=== PATIENT | male | born 1975 | race Caucasian/White ===

== ENCOUNTER 2017-08-25 13:20 | Emergency (ER) | payer SELFPAY ==
[~2017-08-25] VITALS: Ht 167.6 cm; Wt 64.0 kg
[2017-08-25] MEDS ORDERED: PANTOPRAZOLE 80 MG in SODIUM CHLORIDE 0.9% 50 ML IVPB ONE (13:32)
[2017-08-25] MEDS ORDERED: PANTOPRAZOLE 80 MG in SODIUM CHLORIDE 0.9% 100 ML IV SCH (13:32)
[2017-08-25 13:54] LABS: BASOPHILS % (AUTO) 0 % (0-1); EOSINOPHILS % (AUTO) 0 % (1-7); LYMPHOCYTES % (AUTO) 5 % (22-44); MD NO; MEAN CORPUSCULAR HEMOGLOBIN 29.6 pg (27.5-34.5); MEAN CORPUSCULAR HGB CONC 33.5 g/dL (33.2-36.2); MEAN CORPUSCULAR VOLUME 88.3 fL (81-97); MEAN PLATELET VOLUME 7.3 fL (7.4-10.4); MONOCYTES # (AUTO) 0.47 x10^3/uL (0.2-0.8); MONOCYTES % (AUTO) 11 % (2-9); NEUTROPHILS # (AUTO) 3.75 x10^3/uL (1.8-6.8); NEUTROPHILS % (AUTO) 85 % (42-75); PLATELET COUNT 125 x10^3/uL (130-400)
[2017-08-25] MEDS ORDERED: MORPHINE SULFATE 4 MG/ML, 1ML ONE ×2 (14:00→15:30)
[2017-08-25] MEDS ORDERED: SODIUM CHLORIDE 0.9% 1,000ML IVBOLUS ONE ×2 (14:00→16:00)
[2017-08-25] MEDS ORDERED: SODIUM CHLORIDE FLUSH 10ML SYR IVF ONE ×2 (14:00)
[2017-08-25] MEDS ORDERED: ONDANSETRON 2MG/ML, 2ML IVPush ONE (14:00)
[2017-08-25] MEDS ORDERED: ONDANSETRON 2MG/ML, 2ML ONE (14:00)
[2017-08-25 14:04] LABS: CHLORIDE 102 mmol/L (98-107)
[2017-08-25 14:05] LABS: ALANINE AMINOTRANSFERASE 63 U/L (12-78); ALBUMIN 3.3 g/dL (3.4-5.0); ANION GAP 18 mmol/L (5-15); CALCIUM 8.3 mg/dL (8.5-10.1); CREATININE 0.86 mg/dL (0.7-1.3)
[2017-08-25] MEDS: MORPHINE SULFATE 4 MG/ML, 1ML IVPush PRN ×2 (14:05→15:33)
[2017-08-25 14:07] LABS: ALKALINE PHOSPHATASE 92 U/L (45-117); BILIRUBIN,TOTAL 1.2 mg/dL (0.2-1.0); TOTAL PROTEIN 7.3 g/dL (6.4-8.2)
[2017-08-25] MEDS ORDERED: THIAMINE 100MG TABLET PO ONE (14:30)
[2017-08-25 14:45] LABS: INTERNATIONAL NORMALIZED RATIO 0.94 (0.93-1.1); PROTHROMBIN TIME 9.8 Seconds (9.6-11.5)
[2017-08-25] MEDS ORDERED: THIAMINE 100MG TABLET ONE (15:41)
[2017-08-25] MEDS ORDERED: LORazepam 1MG TABLET ONE (16:12)
[2017-08-25] MEDS ORDERED: LORazepam 1MG TABLET PO ONE (16:30)
[2017-08-25] MEDS ORDERED: MAALOX/HYOSCYAMINE/LIDOCAINE 45 ML BTL PO ONE (17:00)
[2017-08-25] MEDS ORDERED: MAALOX/HYOSCYAMINE/LIDOCAINE 45 ML BTL ONE (17:10)
[2017-08-25 18:02] VITALS: BP 123/80
== END 2017-08-25 18:10 | disposition home or self-care (01) ==
LOC: ED 16:14
DX: K29.21 Alcoholic gastritis with bleeding (principal)
CPT/HCPCS: 36415; 71045; 80053; 83690; 85025; 85610; 85730; 93005; 96361; 96365; 96368; 96374; 96375; 96376; 99285; C9113; J2405; J7030

== ENCOUNTER 2018-12-26 18:16 | Observation (INO) | payer MEDICAID ==
[~2018-12-26] VITALS: Ht 165.1 cm; Wt 55.9 kg
--- NOTE | 2018-12-26 18:29 | NUR ---
PT ARRIVES TO ED WITH ABD PAIN. PT RECENTLY IN THE HOSPITAL FOR ABD PAIN. UNABLE TO PROVIDE FURTHER DETAILS. PT DENIES TRUAMA OR ABD BLEEDING OR BLOODY STOOL. PT HAS NO BRUISING ON ABD. PT HAS GOOD CAP REFILL. PT REPORTS CHRONIC ETOH USE PRIOR TO HOSPITAL ADMISSION.
--- NOTE | 2018-12-26 18:31 | NUR ---
CALL LIGHT IN REACH AWAITING FURTHER ORDERS.
--- NOTE | 2018-12-26 18:38 | NUR ---
PT LAYING ON ADAMRCLEMENTE AWAKE C/O ABD PAIN, RESPONDS APPROP TO STAFF, COMFORT MEASURES PROVIDED NEEDED, ERP AT BS, CALL LIGHT WITHIN REACH. Addendum: 12/26/18 at 1850 by LACEY BREAK RN: PT LAYING ON AADMRNEY AWAKE C/O ABD PAIN, RESPONDS APPROP TO STAFF, COMFORT MEASURES PROVIDED NEEDED, ERP AT BS, CALL LIGHT WITHIN REACH.
[2018-12-26] MEDS ORDERED: MAALOX/HYOSCYAMINE/LIDOCAINE 45 ML BTL ONE (18:57)
[2018-12-26] MEDS ORDERED: MORPHINE SULFATE 4 MG/ML, 1ML ONE ×2 (18:57→22:21)
[2018-12-26] MEDS ORDERED: PROMETHAZINE 25 MG/ML, 1ML ONE (18:57)
[2018-12-26] MEDS ORDERED: ONDANSETRON 2MG/ML, 2ML ONE (18:57)
[2018-12-26] MEDS ORDERED: FAMOTIDINE 20 MG/2 ML ONE (18:58)
[2018-12-26] MEDS ORDERED: ONDANSETRON 2MG/ML, 2ML IVPush ONE (19:00)
[2018-12-26] MEDS ORDERED: MAALOX/HYOSCYAMINE/LIDOCAINE 45 ML BTL PO ONE (19:00)
[2018-12-26] MEDS ORDERED: SODIUM CHLORIDE 0.9% 1,000ML IVBOLUS ONE (19:00)
[2018-12-26] MEDS ORDERED: FAMOTIDINE 20 MG/2 ML IV ONE (19:00)
[2018-12-26] MEDS ORDERED: PROMETHAZINE 25 MG/ML, 1ML IM ONE (19:00)
[2018-12-26] MEDS: MORPHINE SULFATE 4 MG/ML, 1ML IVPush PRN ×2 (19:08→22:24)
[2018-12-26 19:14] LABS: BASOPHILS % (AUTO) 0 % (0-1); EOSINOPHILS # (AUTO) 0.03 x10^3/uL (0-0.4); EOSINOPHILS % (AUTO) 0 % (1-7); LYMPHOCYTES # (AUTO) 0.77 x10^3/uL (1-3.4); LYMPHOCYTES % (AUTO) 6 % (22-44); MD NO; MEAN CORPUSCULAR HGB CONC 32.9 g/dL (33.2-36.2); MEAN CORPUSCULAR VOLUME 97.1 fL (81-97); MEAN PLATELET VOLUME 8.4 fL (7.4-10.4); MONOCYTES # (AUTO) 0.76 x10^3/uL (0.2-0.8); MONOCYTES % (AUTO) 6 % (2-9); NEUTROPHILS % (AUTO) 87 % (42-75); PLATELET COUNT 177 x10^3/uL (130-400); RED BLOOD COUNT 4.06 x10^6/uL (4.38-5.82); RED CELL DISTRIBUTION WIDTH 16.2 % (9.4-14.8)
--- NOTE | 2018-12-26 19:15 | NUR ---
PT MEDICATED PER EMAR.
[2018-12-26 19:23] LABS: ALANINE AMINOTRANSFERASE 65 U/L (12-78); ALBUMIN 3.7 g/dL (3.4-5.0); ANION GAP 10 mmol/L (5-15); CALCIUM 8.6 mg/dL (8.5-10.1); CHLORIDE 100 mmol/L (98-107); CREATININE 0.84 mg/dL (0.7-1.3)
[2018-12-26 19:25] LABS: ALKALINE PHOSPHATASE 103 U/L (45-117); BILIRUBIN,TOTAL 0.5 mg/dL (0.2-1.0); TOTAL PROTEIN 7.8 g/dL (6.4-8.2)
[2018-12-26] MEDS ORDERED: HALOPERIDOL 5 MG/ML IM ONE (20:00)
[2018-12-26] MEDS ORDERED: DICYCLOMINE 10 MG/ML, 2ML IM ONE (20:00)
[2018-12-26] MEDS ORDERED: HALOPERIDOL 5 MG/ML ONE (20:25)
[2018-12-26] MEDS ORDERED: HALOPERIDOL 5 MG/ML IV ONE (21:00)
[2018-12-26] MEDS: NS + 20MEQ KCL 1,000 ML IV SCH (21:38)
[2018-12-26] MEDS ORDERED: ONDANSETRON 2MG/ML, 2ML IVPush PRN (22:00)
[2018-12-26] MEDS: FAMOTIDINE 20 MG TABLET PO SCH (22:00)
[2018-12-26] MEDS ORDERED: NS + 20MEQ KCL 1,000 ML IV ONE (22:05)
--- NOTE | 2018-12-26 22:13 | NUR ---
PT REMAINS IN PAIN, HOWEVER HAS IMPROVED. INFORMED THAT DUE TO ETOH ON BOARD ER MD DOES NOT WANT MORE NARCOTICS CLIFF BOARD FOR SAFETY.
--- NOTE | 2018-12-26 22:19 | NUR ---
PAGED PLACED TO HOSPITALIST.
[2018-12-26] MEDS: SUCRALFATE 1 GM/10 ML UDC PO SCH (22:24)
--- NOTE | 2018-12-26 22:24 | NUR ---
PT GIVEN SECOND DOSE OF MORPHINE PAIN MEDS AFTER SPEAKING WITH ARVIND LOPEZ. PT TO RECIEVE NO FURTHER NARCOTIC UNTIL ETOH GOES DOWN.
--- NOTE | 2018-12-26 22:29 | NUR ---
REPORT TO MAX THOMPSON
--- NOTE | 2018-12-26 22:37 | NUR ---
Marnie phillips in [facility] - 12/26/18 at 2238 by LYNNE REPORT TO MAX THOMPSON
--- NOTE | 2018-12-26 22:38 | NUR ---
REPORT TO MAX THOMPSON
[2018-12-26 22:56] VITALS: BP 145/88
[2018-12-27 02:00] VITALS: BP 119/83
[2018-12-27 06:46] LABS: BASOPHILS # (AUTO) 0.08 x10^3/uL (0-0.1); BASOPHILS % (AUTO) 1 % (0-1); EOSINOPHILS % (AUTO) 6 % (1-7); LYMPHOCYTES # (AUTO) 1.32 x10^3/uL (1-3.4); LYMPHOCYTES % (AUTO) 17 % (22-44); MD NO; MEAN CORPUSCULAR HGB CONC 32.8 g/dL (33.2-36.2); MEAN CORPUSCULAR VOLUME 97.6 fL (81-97); MEAN PLATELET VOLUME 7.9 fL (7.4-10.4); MONOCYTES % (AUTO) 11 % (2-9); NEUTROPHILS # (AUTO) 5.14 x10^3/uL (1.8-6.8); NEUTROPHILS % (AUTO) 65 % (42-75); PLATELET COUNT 146 x10^3/uL (130-400); RED BLOOD COUNT 3.56 x10^6/uL (4.38-5.82); RED CELL DISTRIBUTION WIDTH 16.1 % (9.4-14.8)
[2018-12-27 06:56] LABS: ALBUMIN 2.8 g/dL (3.4-5.0); ANION GAP 7 mmol/L (5-15); CALCIUM 7.7 mg/dL (8.5-10.1); CHLORIDE 109 mmol/L (98-107)
[2018-12-27 07:00] LABS: ALANINE AMINOTRANSFERASE 45 U/L (12-78); ALKALINE PHOSPHATASE 77 U/L (45-117); CREATININE 0.57 mg/dL (0.7-1.3); TOTAL PROTEIN 5.9 g/dL (6.4-8.2)
[2018-12-27] MEDS: SUCRALFATE 1 GM/10 ML UDC PO SCH ×4 (07:18→19:51)
[2018-12-27 07:33] VITALS: BP 121/82
[2018-12-27] MEDS: FAMOTIDINE 20 MG TABLET PO SCH ×2 (08:47→19:51)
[2018-12-27] MEDS: NS + 20MEQ KCL 1,000 ML IV SCH ×2 (08:48→17:38)
[2018-12-27] MEDS ORDERED: OMNIPAQUE 350 MG/ML, 100ML BOTTLE ONE (11:52)
[2018-12-27 13:10] VITALS: BP 117/76
[2018-12-27 16:27] LABS: MICROSCOPIC NOT IND
[2018-12-27 19:40] VITALS: BP 115/82
[2018-12-27] MEDS: ACETAMINOPHEN 325 MG TABLET PO PRN (19:51)
[2018-12-28 02:31] VITALS: BP 99/69
[2018-12-28] MEDS: NS + 20MEQ KCL 1,000 ML IV SCH ×2 (03:00→14:37)
[2018-12-28] MEDS: SUCRALFATE 1 GM/10 ML UDC PO SCH ×4 (06:26→20:55)
[2018-12-28 06:42] LABS: ANION GAP 5 mmol/L (5-15); CALCIUM 8.6 mg/dL (8.5-10.1); CHLORIDE 109 mmol/L (98-107)
[2018-12-28 06:46] LABS: ALANINE AMINOTRANSFERASE 52 U/L (12-78); ALKALINE PHOSPHATASE 80 U/L (45-117); BILIRUBIN,TOTAL 0.6 mg/dL (0.2-1.0); CREATININE 0.62 mg/dL (0.7-1.3); TOTAL PROTEIN 6.4 g/dL (6.4-8.2)
[2018-12-28 06:58] LABS: BASOPHILS # (AUTO) 0.05 x10^3/uL (0-0.1); BASOPHILS % (AUTO) 1 % (0-1); EOSINOPHILS % (AUTO) 13 % (1-7); LYMPHOCYTES # (AUTO) 1.13 x10^3/uL (1-3.4); LYMPHOCYTES % (AUTO) 24 % (22-44); MD SCAN; MEAN CORPUSCULAR HEMOGLOBIN 31.7 pg (27.5-34.5); MEAN CORPUSCULAR HGB CONC 32.5 g/dL (33.2-36.2); MEAN CORPUSCULAR VOLUME 97.8 fL (81-97); MEAN PLATELET VOLUME 8.2 fL (7.4-10.4); MONOCYTES # (AUTO) 0.73 x10^3/uL (0.2-0.8); MONOCYTES % (AUTO) 16 % (2-9); NEUTROPHILS # (AUTO) 2.19 x10^3/uL (1.8-6.8); NEUTROPHILS % (AUTO) 47 % (42-75); PLATELET COUNT 164 x10^3/uL (130-400); RED BLOOD COUNT 4.02 x10^6/uL (4.38-5.82); RED CELL DISTRIBUTION WIDTH 16.2 % (9.4-14.8)
[2018-12-28 08:19] VITALS: BP 117/83
[2018-12-28] MEDS: FAMOTIDINE 20 MG TABLET PO SCH ×2 (08:22→20:55)
[2018-12-28] MEDS: ACETAMINOPHEN 325 MG TABLET PO PRN ×2 (08:23→18:16)
[2018-12-28 13:50] VITALS: BP 122/84
[2018-12-28 19:17] VITALS: BP 117/82
[2018-12-29] MEDS: NS + 20MEQ KCL 1,000 ML IV SCH ×3 (00:03→21:40)
[2018-12-29 01:51] VITALS: BP 104/73
[2018-12-29 07:55] VITALS: BP 102/67
[2018-12-29] MEDS: FAMOTIDINE 20 MG TABLET PO SCH ×2 (08:57→21:39)
[2018-12-29] MEDS: SUCRALFATE 1 GM/10 ML UDC PO SCH ×4 (08:57→21:39)
[2018-12-29 14:50] VITALS: BP 106/74
[2018-12-29] MEDS: ACETAMINOPHEN 325 MG TABLET PO PRN ×2 (16:21→21:39)
[2018-12-29 19:22] VITALS: BP 103/69
[2018-12-30 01:15] VITALS: BP 110/77
[2018-12-30] MEDS: SUCRALFATE 1 GM/10 ML UDC PO SCH (07:42)
[2018-12-30] MEDS: FAMOTIDINE 20 MG TABLET PO SCH (07:42)
[2018-12-30 07:52] VITALS: BP 100/69
== END 2018-12-30 10:51 | disposition home or self-care (01) ==
LOC: ED 21:25 → INTOOBSV 21:31 → EDIP 21:31 → ED 21:37 → 3N 22:43
PROVIDERS: ADMIT Internal Medicine; ATTEND Internal Medicine
DX: K29.20 Alcoholic gastritis without bleeding (principal); E87.6 Hypokalemia; D75.89 Other specified diseases of blood and blood-forming organs; F17.210 Nicotine dependence, cigarettes, uncomplicated; E86.0 Dehydration; Z79.899 Other long term (current) drug therapy
CPT/HCPCS: 36415; 71045; 74177; 80053; 80307; 81003; 82607; 83690; 85025; 96365; 96366; 96372; 96375; 96376; 99284; G0378; J1630; J2270; J2405; J2550; J3480; J3490; J7030; Q9967

== ENCOUNTER 2019-10-27 13:58 | Inpatient (IN) | payer MEDICAID ==
[~2019-10-27] VITALS: Ht 170.2 cm; Wt 69.0 kg
[2019-10-27] MEDS ORDERED: SODIUM CHLORIDE 0.9% 1,000 ML IV ONE (14:08)
[2019-10-27] MEDS ORDERED: PANTOPRAZOLE 80 MG in SODIUM CHLORIDE 0.9% 50 ML IVPB ONE (14:08)
[2019-10-27] MEDS: PANTOPRAZOLE 80 MG in SODIUM CHLORIDE 0.9% 100 ML IV SCH ×2 (14:08→17:35)
[2019-10-27] MEDS ORDERED: ONDANSETRON 2MG/ML, 2ML ONE (14:11)
[2019-10-27] MEDS ORDERED: HYDROmorphone 1 MG/ML, 1ML INJ ONE ×2 (14:11→15:23)
[2019-10-27] MEDS: HYDROmorphone 1 MG/ML, 1ML INJ IVPush PRN ×2 (14:16→15:30)
--- NOTE | 2019-10-27 14:27 | NUR ---
BREAK RN- PT TO IMAGING
[2019-10-27] MEDS ORDERED: ONDANSETRON 2MG/ML, 2ML IVPush ONE (14:30)
[2019-10-27] MEDS ORDERED: PLEASE ENTER HEIGHT AND WEIGHT MC SCH (14:30)
[2019-10-27] MEDS ORDERED: THIAMINE 100 MG in SODIUM CHLORIDE 0.9% 50 ML IVPB ONE (14:30)
[2019-10-27] MEDS ORDERED: SODIUM CHLORIDE FLUSH 10ML SYR IVF ONE (14:30)
[2019-10-27] MEDS ORDERED: SODIUM CHLORIDE 0.9% 1,000ML IVBOLUS ONE (14:30)
[2019-10-27 14:31] LABS: BASOPHILS # (AUTO) 0.03 x10^3/uL (0-0.1); BASOPHILS % (AUTO) 0 % (0-1); EOSINOPHILS # (AUTO) 0.01 x10^3/uL (0-0.4); EOSINOPHILS % (AUTO) 0 % (1-7); LYMPHOCYTES # (AUTO) 0.47 x10^3/uL (1-3.4); LYMPHOCYTES % (AUTO) 7 % (22-44); MD NO; MEAN CORPUSCULAR HEMOGLOBIN 32.5 pg (27.5-34.5); MEAN CORPUSCULAR HGB CONC 32.9 g/dL (33.2-36.2); MEAN CORPUSCULAR VOLUME 98.7 fL (81-97); MEAN PLATELET VOLUME 7.5 fL (7.4-10.4); MONOCYTES # (AUTO) 0.48 x10^3/uL (0.2-0.8); MONOCYTES % (AUTO) 7 % (2-9); NEUTROPHILS # (AUTO) 5.92 x10^3/uL (1.8-6.8); NEUTROPHILS % (AUTO) 86 % (42-75); PLATELET COUNT 210 x10^3/uL (130-400); RED BLOOD COUNT 4.09 x10^6/uL (4.38-5.82); RED CELL DISTRIBUTION WIDTH 19.2 % (9.4-14.8)
[2019-10-27 14:41] LABS: ALANINE AMINOTRANSFERASE 136 U/L (12-78); ANION GAP 12 mmol/L (5-15); CALCIUM 8.9 mg/dL (8.5-10.1); CHLORIDE 111 mmol/L (98-107); CREATININE 0.61 mg/dL (0.7-1.3)
[2019-10-27 14:44] LABS: ALKALINE PHOSPHATASE 141 U/L (45-117); BILIRUBIN,TOTAL 0.6 mg/dL (0.2-1.0); TOTAL PROTEIN 6.4 g/dL (6.4-8.2)
--- NOTE | 2019-10-27 14:49 | NUR ---
MEDICATIONS REQUESTED FROM PHARMACY
[2019-10-27 15:04] LABS: INTERNATIONAL NORMALIZED RATIO 1.01 (0.93-1.1); PROTHROMBIN TIME 10.4 Seconds (9.6-11.5)
[2019-10-27] MEDS ORDERED: PANTOPRAZOLE 40 MG IV ONE (15:33)
[2019-10-27] MEDS ORDERED: POTASSIUM CHLORIDE 20 MEQ TAB.ER.PRT ONE (15:44)
[2019-10-27] MEDS ORDERED: SODIUM CHLORIDE FLUSH 10ML SYR IVF PRN (16:00)
[2019-10-27] MEDS ORDERED: POTASSIUM CHLORIDE 20 MEQ TAB.ER.PRT PO ONE (16:00)
[2019-10-27] MEDS ORDERED: LORazepam 0.5MG TABLET PO PRN (16:30)
[2019-10-27] MEDS ORDERED: LORazepam 2 MG/ML, 1ML IV PRN ×5 (16:30)
[2019-10-27] MEDS ORDERED: ONDANSETRON ODT 4 MG PO PRN (16:30)
[2019-10-27] MEDS ORDERED: LORazepam 1MG TABLET PO PRN ×4 (16:30)
[2019-10-27] MEDS ORDERED: TRAZODONE 50MG TABLET PO PRN ×2 (16:30→21:00)
[2019-10-27] MEDS ORDERED: METOCLOPRAMIDE 5 MG/ML, 2ML IVPush PRN (16:30)
[2019-10-27 16:51] VITALS: BP 151/93
[2019-10-27] MEDS: NS + 20MEQ KCL 1,000 ML IV SCH (17:50)
[2019-10-27] MEDS: DIVALPROEX 125 MG CAP.SPRINK PO SCH (17:50)
[2019-10-27] MEDS ORDERED: MAGNESIUM SULFATE PMX 4GM/100M 100 ML IV ONE (18:00)
[2019-10-27] MEDS ORDERED: NICOTINE 14MG/24 HR PATCH.TD24 TD ONE (18:00)
[2019-10-27 18:50] VITALS: BP 144/88
[2019-10-27] MEDS: GABAPENTIN 300 MG CAPSULE PO SCH (20:08)
[2019-10-28] MEDS: NS + 20MEQ KCL 1,000 ML IV SCH ×4 (00:07→23:49)
[2019-10-28] MEDS: DIVALPROEX 125 MG CAP.SPRINK PO SCH ×3 (00:30→15:31)
[2019-10-28 01:53] VITALS: BP 137/82
[2019-10-28 06:07] LABS: ALANINE AMINOTRANSFERASE 101 U/L (12-78); ALBUMIN 2.7 g/dL (3.4-5.0); ANION GAP 6 mmol/L (5-15); CALCIUM 7.6 mg/dL (8.5-10.1); CHLORIDE 112 mmol/L (98-107)
[2019-10-28 06:09] LABS: ALKALINE PHOSPHATASE 128 U/L (45-117); BILIRUBIN,TOTAL 0.7 mg/dL (0.2-1.0); TOTAL PROTEIN 5.9 g/dL (6.4-8.2)
[2019-10-28 07:00] VITALS: BP 119/83
[2019-10-28] MEDS: MULTIVITAMIN 1 TABLET PO SCH (08:33)
[2019-10-28] MEDS: THIAMINE 100MG TABLET PO SCH (08:33)
[2019-10-28] MEDS: GABAPENTIN 300 MG CAPSULE PO SCH ×3 (08:33→20:00)
[2019-10-28] MEDS: FOLIC ACID 1 MG TABLET PO SCH (08:33)
[2019-10-28 12:11] VITALS: BP 118/84
[2019-10-28] MEDS: ACETAMINOPHEN 325 MG TABLET PO PRN (12:42)
[2019-10-28] MEDS: METOCLOPRAMIDE 5 MG/ML, 2ML IVPush SCH ×2 (12:56→19:16)
[2019-10-28] MEDS: PANTOPRAZOLE 40 MG IV IVPush SCH (12:56)
[2019-10-28 18:20] VITALS: BP 113/79
[2019-10-29] MEDS: PANTOPRAZOLE 40 MG IV IVPush SCH ×2 (01:13→12:07)
[2019-10-29] MEDS: METOCLOPRAMIDE 5 MG/ML, 2ML IVPush SCH ×3 (01:14→12:07)
[2019-10-29] MEDS: DIVALPROEX 125 MG CAP.SPRINK PO SCH ×3 (01:14→15:23)
[2019-10-29 02:00] VITALS: BP 106/70
[2019-10-29 06:53] VITALS: BP 112/77
[2019-10-29] MEDS: FOLIC ACID 1 MG TABLET PO SCH (07:22)
[2019-10-29] MEDS: NS + 20MEQ KCL 1,000 ML IV SCH ×2 (07:22→14:48)
[2019-10-29] MEDS: GABAPENTIN 300 MG CAPSULE PO SCH ×2 (07:22→15:23)
[2019-10-29] MEDS: THIAMINE 100MG TABLET PO SCH (07:22)
[2019-10-29] MEDS: MULTIVITAMIN 1 TABLET PO SCH (07:22)
[2019-10-29] MEDS: ACETAMINOPHEN 325 MG TABLET PO PRN (13:49)
[2019-10-29] MEDS ORDERED: MULT-449 PO (14:01)
[2019-10-29] MEDS ORDERED: OMEP20TA62 PO (14:01)
[2019-10-29] MEDS ORDERED: DIVA125C2 PO (14:01)
[2019-10-29] MEDS ORDERED: GABA300C PO (14:01)
[2019-10-29 14:34] VITALS: BP 112/76
[2019-10-30] MEDS ORDERED: PANTOPRAZOLE 40MG TABLET PO SCH (06:00)
== END 2019-10-29 18:10 | disposition home or self-care (01) | DRG 392 ==
LOC: ED 15:50 → SUATTDRO 16:04 → EDIP 16:13 → 4WST 16:24
PROVIDERS: ADMIT Internal Medicine; ATTEND Internal Medicine
DX: K29.20 Alcoholic gastritis without bleeding (principal); F10.239 Alcohol dependence with withdrawal, unspecified; E83.42 Hypomagnesemia; E87.6 Hypokalemia; F17.200 Nicotine dependence, unspecified, uncomplicated; K29.00 Acute gastritis without bleeding; K76.0 Fatty (change of) liver, not elsewhere classified
CPT/HCPCS: 36415; 74021; 76705; 80053; 83690; 83735; 84100; 85018; 85025; 85610; 85730; 86850; 86900; G0378; J1170; J2405; J3411; J3480; C9113; J2060; J2765; J3475; J7030

== ENCOUNTER 2020-01-06 12:27 | Inpatient (IN) | payer MEDICAID ==
[~2020-01-06] VITALS: Ht 167.6 cm; Wt 63.4 kg
[~2020-01-06 12:27] MED LIST: DIVA125C2 PO; GABA300C PO; MULT-449 PO; OMEP20TA62 PO
[2020-01-06] MEDS ORDERED: PROMETHAZINE 25 MG/ML, 1ML ONE (13:26)
[2020-01-06] MEDS ORDERED: MAALOX/HYOSCYAMINE/LIDOCAINE 45 ML BTL ONE (13:27)
[2020-01-06] MEDS ORDERED: FAMOTIDINE 20 MG/2 ML ONE (13:27)
[2020-01-06 13:29] LABS: BASOPHILS % (AUTO) 0 % (0-1); EOSINOPHILS % (AUTO) 0 % (1-7); LYMPHOCYTES % (AUTO) 3 % (22-44); MEAN CORPUSCULAR HEMOGLOBIN 32.2 pg (27.5-34.5); MEAN CORPUSCULAR HGB CONC 33.5 g/dL (33.2-36.2); MEAN PLATELET VOLUME 9.8 fL (7.4-10.4); MONOCYTES % (AUTO) 4 % (2-9); NEUTROPHILS % (AUTO) 93 % (42-75); PLATELET COUNT 114 x10^3/uL (130-400); RED BLOOD COUNT 4.31 x10^6/uL (4.38-5.82); RED CELL DISTRIBUTION WIDTH 14.5 % (9.4-14.8)
[2020-01-06] MEDS ORDERED: PROMETHAZINE 25 MG/ML, 1ML IM ONE (13:30)
[2020-01-06] MEDS ORDERED: SODIUM CHLORIDE FLUSH 10ML SYR IVF ONE (13:30)
[2020-01-06] MEDS ORDERED: FAMOTIDINE 20 MG/2 ML IV ONE (13:30)
[2020-01-06] MEDS ORDERED: MAALOX/HYOSCYAMINE/LIDOCAINE 45 ML BTL PO ONE (13:30)
[2020-01-06] MEDS ORDERED: SODIUM CHLORIDE 0.9% 1,000ML IVBOLUS ONE (13:30)
[2020-01-06 13:34] LABS: ALANINE AMINOTRANSFERASE 28 U/L (12-78); ALBUMIN 3.7 g/dL (3.4-5.0); ANION GAP 12 mmol/L (5-15); CALCIUM 9.2 mg/dL (8.5-10.1); CHLORIDE 95 mmol/L (98-107); CREATININE 1.12 mg/dL (0.7-1.3)
[2020-01-06 13:36] LABS: ALKALINE PHOSPHATASE 90 U/L (45-117); BILIRUBIN,TOTAL 0.8 mg/dL (0.2-1.0); TOTAL PROTEIN 7.5 g/dL (6.4-8.2)
[2020-01-06 14:02] LABS: MD NO
[2020-01-06] MEDS ORDERED: OMNIPAQUE 350 MG/ML, 100ML BOTTLE ONE (14:32)
[2020-01-06 14:38] LABS: MICROSCOPIC INDICATED
[2020-01-06 14:58] LABS: TROPONIN I < 0.015 ng/mL (0.000-0.045)
--- NOTE | 2020-01-06 15:26 | NUR ---
REPORT GIVEN TO DONNA LOPEZ
[2020-01-06] MEDS ORDERED: METOCLOPRAMIDE 5 MG/ML, 2ML ONE (17:16)
[2020-01-06] MEDS ORDERED: METOCLOPRAMIDE 5 MG/ML, 2ML IVPush ONE (17:30)
[2020-01-06] MEDS ORDERED: SODIUM CHLORIDE 0.9% 1,000 ML IV ONE (17:30)
[2020-01-06 18:10] LABS: AMPHETAMINE SCREEN, URINE Negative (Negative); BARBITURATE SCREEN, URINE Negative (Negative); BENZODIAZEPINE SCREEN, URINE Negative (Negative); CANNABINOID SCREEN, URINE Negative (Negative); COCAINE SCREEN, URINE Negative (Negative); METHADONE SCREEN, URINE Negative (Negative); OPIATE SCREEN, URINE Negative (Negative)
[2020-01-06] MEDS ORDERED: BISACODYL 10 MG SUPP PR PRN (18:30)
[2020-01-06] MEDS ORDERED: ACETAMINOPHEN 325 MG TABLET PO PRN (18:30)
[2020-01-06] MEDS ORDERED: POLYETHYLENE GLYCOL 17 GM PACKET PO PRN (18:30)
[2020-01-06] MEDS ORDERED: OMEPRAZOLE 20 MG CAPSULE.DR ONE (18:43)
[2020-01-06] MEDS ORDERED: NS + 20MEQ KCL 1,000 ML IV ONE (18:43)
[2020-01-06] MEDS: SUCRALFATE 1 GM/10 ML UDC PO SCH (19:20)
[2020-01-06] MEDS: NS + 20MEQ KCL 1,000 ML IV SCH (19:20)
[2020-01-06 21:13] VITALS: BP 90/63
[2020-01-06] MEDS: NICOTINE 14MG/24 HR PATCH.TD24 TD SCH (23:42)
[2020-01-06] MEDS: OXYcodone IR 5MG TABLET PO PRN (23:42)
[2020-01-07 02:05] VITALS: BP 89/60
[2020-01-07] MEDS: NS + 20MEQ KCL 1,000 ML IV SCH ×3 (02:10→20:22)
[2020-01-07 02:11] VITALS: BP 94/60
[2020-01-07] MEDS: ONDANSETRON 2MG/ML, 2ML IVPush PRN ×2 (02:16→10:07)
[2020-01-07 07:21] VITALS: BP 99/63
[2020-01-07] MEDS ORDERED: OMEPRAZOLE 20 MG CAPSULE.DR PO SCH (07:30)
[2020-01-07] MEDS: SUCRALFATE 1 GM/10 ML UDC PO SCH ×4 (08:44→20:22)
[2020-01-07] MEDS: OXYcodone IR 5MG TABLET PO PRN ×3 (08:45→20:49)
[2020-01-07] MEDS: SENNA/DOCUSATE TABLET PO SCH (08:45)
[2020-01-07 09:57] LABS: BASOPHILS % (AUTO) 1 % (0-1); EOSINOPHILS % (AUTO) 1 % (1-7); LYMPHOCYTES % (AUTO) 22 % (22-44); MEAN CORPUSCULAR HEMOGLOBIN 32.8 pg (27.5-34.5); MEAN CORPUSCULAR HGB CONC 34.2 g/dL (33.2-36.2); MEAN PLATELET VOLUME 9.8 fL (7.4-10.4); MONOCYTES % (AUTO) 7 % (2-9); NEUTROPHILS % (AUTO) 69 % (42-75); PLATELET COUNT 65 x10^3/uL (130-400); RED BLOOD COUNT 2.94 x10^6/uL (4.38-5.82); RED CELL DISTRIBUTION WIDTH 14.6 % (9.4-14.8)
[2020-01-07 10:23] LABS: ANION GAP 6 mmol/L (5-15); CALCIUM 7.8 mg/dL (8.5-10.1); CHLORIDE 110 mmol/L (98-107); CREATININE 0.61 mg/dL (0.7-1.3)
[2020-01-07 10:33] LABS: MD SCAN
[2020-01-07] MEDS: MAALOX/HYOSCYAMINE/LIDOCAINE 45 ML BTL PO SCH ×3 (11:10→20:22)
[2020-01-07 12:05] VITALS: BP 93/58
[2020-01-07 15:52] LABS: BASOPHILS % (AUTO) 0 % (0-1); EOSINOPHILS % (AUTO) 2 % (1-7); LYMPHOCYTES % (AUTO) 34 % (22-44); MEAN CORPUSCULAR HGB CONC 33.6 g/dL (33.2-36.2); MONOCYTES % (AUTO) 7 % (2-9); NEUTROPHILS % (AUTO) 57 % (42-75); PLATELET COUNT 66 x10^3/uL (130-400); RED BLOOD COUNT 2.84 x10^6/uL (4.38-5.82); RED CELL DISTRIBUTION WIDTH 14.4 % (9.4-14.8)
[2020-01-07 15:53] LABS: MD NO
[2020-01-07] MEDS: PANTOPRAZOLE 40 MG IV IVPush SCH (16:02)
[2020-01-07 20:01] VITALS: BP 95/56
[2020-01-07] MEDS: NICOTINE 14MG/24 HR PATCH.TD24 TD SCH (20:25)
[2020-01-08 02:33] VITALS: BP 92/60
[2020-01-08 05:37] LABS: BASOPHILS % (AUTO) 1 % (0-1); EOSINOPHILS % (AUTO) 3 % (1-7); LYMPHOCYTES % (AUTO) 25 % (22-44); MD NO; MEAN CORPUSCULAR HEMOGLOBIN 32.5 pg (27.5-34.5); MEAN CORPUSCULAR HGB CONC 33.1 g/dL (33.2-36.2); MEAN PLATELET VOLUME 9.3 fL (7.4-10.4); MONOCYTES % (AUTO) 6 % (2-9); NEUTROPHILS % (AUTO) 66 % (42-75); PLATELET COUNT 69 x10^3/uL (130-400); RED BLOOD COUNT 2.93 x10^6/uL (4.38-5.82); RED CELL DISTRIBUTION WIDTH 14.5 % (9.4-14.8)
[2020-01-08] MEDS: OXYcodone IR 5MG TABLET PO PRN ×4 (05:47→19:38)
[2020-01-08 05:48] LABS: CALCIUM 7.8 mg/dL (8.5-10.1); CREATININE 0.52 mg/dL (0.7-1.3)
[2020-01-08] MEDS: PANTOPRAZOLE 40 MG IV IVPush SCH (05:55)
[2020-01-08] MEDS: MAALOX/HYOSCYAMINE/LIDOCAINE 45 ML BTL PO SCH ×4 (05:55→19:38)
[2020-01-08 05:59] LABS: ANION GAP 5 mmol/L (5-15); CHLORIDE 112 mmol/L (98-107)
[2020-01-08] MEDS ORDERED: CHLORHEXIDINE 15 ML UDC ONE (07:05)
[2020-01-08] MEDS ORDERED: PROPOFOL 10 MG/ML, 20ML ONE (07:28)
[2020-01-08] MEDS ORDERED: CHLORHEXIDINE 15 ML UDC MM ONE (07:30)
[2020-01-08] MEDS ORDERED: MIDAZOLAM 1 MG/ML, 2ML ONE (07:32)
[2020-01-08 08:30] VITALS: BP 97/62
[2020-01-08] MEDS: SENNA/DOCUSATE TABLET PO SCH (09:00)
[2020-01-08] MEDS: SUCRALFATE 1 GM/10 ML UDC PO SCH ×3 (10:28→19:38)
[2020-01-08] MEDS: ONDANSETRON 2MG/ML, 2ML IVPush PRN (10:29)
[2020-01-08] MEDS: PANTOPRAZOLE 40MG TABLET PO SCH ×2 (10:33→19:38)
[2020-01-08] MEDS: NS + 20MEQ KCL 1,000 ML IV SCH (11:44)
[2020-01-08 13:02] VITALS: BP 91/60
[2020-01-08] MEDS: NICOTINE 14MG/24 HR PATCH.TD24 TD SCH (19:38)
[2020-01-08 20:57] VITALS: BP 97/65
[2020-01-09] MEDS: OXYcodone IR 5MG TABLET PO PRN ×5 (00:50→20:50)
[2020-01-09] MEDS: NS + 20MEQ KCL 1,000 ML IV SCH (01:02)
[2020-01-09 03:37] VITALS: BP 96/62
[2020-01-09] MEDS: SUCRALFATE 1 GM/10 ML UDC PO SCH ×4 (05:48→20:42)
[2020-01-09] MEDS: MAALOX/HYOSCYAMINE/LIDOCAINE 45 ML BTL PO SCH ×4 (05:48→21:36)
[2020-01-09 06:11] LABS: BASOPHILS % (AUTO) 1 % (0-1); EOSINOPHILS % (AUTO) 4 % (1-7); LYMPHOCYTES % (AUTO) 27 % (22-44); MEAN CORPUSCULAR HEMOGLOBIN 33.2 pg (27.5-34.5); MEAN CORPUSCULAR HGB CONC 33.8 g/dL (33.2-36.2); MEAN PLATELET VOLUME 8.5 fL (7.4-10.4); MONOCYTES % (AUTO) 8 % (2-9); NEUTROPHILS % (AUTO) 61 % (42-75); PLATELET COUNT 94 x10^3/uL (130-400); RED BLOOD COUNT 2.92 x10^6/uL (4.38-5.82); RED CELL DISTRIBUTION WIDTH 14.2 % (9.4-14.8)
[2020-01-09 06:17] LABS: MD NO
[2020-01-09 06:22] LABS: ANION GAP 4 mmol/L (5-15); CALCIUM 7.6 mg/dL (8.5-10.1); CHLORIDE 108 mmol/L (98-107)
[2020-01-09 06:23] LABS: CREATININE 0.58 mg/dL (0.7-1.3)
[2020-01-09 09:04] VITALS: BP 95/65
[2020-01-09] MEDS: SENNA/DOCUSATE TABLET PO SCH (10:19)
[2020-01-09] MEDS: PANTOPRAZOLE 40MG TABLET PO SCH ×2 (10:19→20:42)
[2020-01-09 15:00] VITALS: BP 95/61
[2020-01-09] MEDS: NICOTINE 14MG/24 HR PATCH.TD24 TD SCH (20:43)
[2020-01-09] MEDS: ONDANSETRON 2MG/ML, 2ML IVPush PRN (20:50)
[2020-01-09 20:55] VITALS: BP 100/69
[2020-01-10 01:40] VITALS: BP 96/63
[2020-01-10] MEDS: ONDANSETRON 2MG/ML, 2ML IVPush PRN (04:48)
[2020-01-10] MEDS: OXYcodone IR 5MG TABLET PO PRN (04:48)
[2020-01-10 05:06] LABS: BASOPHILS % (AUTO) 1 % (0-1); EOSINOPHILS % (AUTO) 5 % (1-7); LYMPHOCYTES % (AUTO) 30 % (22-44); MEAN CORPUSCULAR HEMOGLOBIN 33.2 pg (27.5-34.5); MEAN CORPUSCULAR HGB CONC 34.2 g/dL (33.2-36.2); MEAN PLATELET VOLUME 8.1 fL (7.4-10.4); MONOCYTES % (AUTO) 13 % (2-9); NEUTROPHILS % (AUTO) 51 % (42-75); PLATELET COUNT 116 x10^3/uL (130-400); RED BLOOD COUNT 3.01 x10^6/uL (4.38-5.82); RED CELL DISTRIBUTION WIDTH 14.3 % (9.4-14.8)
[2020-01-10] MEDS: MAALOX/HYOSCYAMINE/LIDOCAINE 45 ML BTL PO SCH (05:12)
[2020-01-10 05:13] LABS: ANION GAP 4 mmol/L (5-15); CALCIUM 7.9 mg/dL (8.5-10.1); CHLORIDE 109 mmol/L (98-107); CREATININE 0.77 mg/dL (0.7-1.3); MD NO
[2020-01-10] MEDS ORDERED: PANT40TA6 PO (07:31)
[2020-01-10] MEDS ORDERED: SUCR1ORA5 PO (07:31)
[2020-01-10] MEDS ORDERED: Maalox/Hyoscyamine/Lidocaine PO (07:31)
[2020-01-10] MEDS: SENNA/DOCUSATE TABLET PO SCH (09:00)
[2020-01-10] MEDS: SUCRALFATE 1 GM/10 ML UDC PO SCH (09:03)
[2020-01-10] MEDS: PANTOPRAZOLE 40MG TABLET PO SCH (09:03)
[2020-01-10 09:42] VITALS: BP 97/63
== END 2020-01-10 11:52 | disposition home or self-care (01) | DRG 381 ==
LOC: ED 17:55 → EDIP 18:03 → ED 20:14 → 3N 20:45 → DCLOUNGE 01-10 11:47
PROVIDERS: ADMIT Internal Medicine; ATTEND Internal Medicine
PROC: 0DB68ZX Excision of Stomach, Via Natural or Artificial Opening Endoscopic, Diagnostic (ICD-10-PCS; principal; 2020-01-08 07:30)
DX: K22.11 Ulcer of esophagus with bleeding (principal); E87.1 Hypo-osmolality and hyponatremia; R65.10 Systemic inflammatory response syndrome (SIRS) of non-infectious origin without acute organ dysfunction; D69.6 Thrombocytopenia, unspecified; R00.0 Tachycardia, unspecified; Z20.828 Contact with and (suspected) exposure to other viral communicable diseases; D64.9 Anemia, unspecified; D72.829 Elevated white blood cell count, unspecified; E87.6 Hypokalemia; F17.210 Nicotine dependence, cigarettes, uncomplicated; K44.9 Diaphragmatic hernia without obstruction or gangrene; Z56.0 Unemployment, unspecified; Z59.0 Homelessness; Z80.8 Family history of malignant neoplasm of other organs or systems; Z83.3 Family history of diabetes mellitus
CPT/HCPCS: 36415; 71045; 74177; 80048; 80053; 80307; 81001; 83605; 83690; 83735; 84484; 85014; 85018; 85025; 87635; 88305; 93005; 96365; 96366; 96372; 96375; 99291; G0378; J2250; J2405; J2550; J2704; J3480; Q9967; C9113; J2765; J7030

== ENCOUNTER 2020-03-13 07:35 | Inpatient (IN) | payer MEDICAID ==
[~2020-03-13] VITALS: Ht 167.6 cm; Wt 64.8 kg
[~2020-03-13 07:35] MED LIST changes: +Maalox/Hyoscyamine/Lidocaine PO; +PANT40TA6 PO; +SUCR1ORA5 PO
[2020-03-13] MEDS ORDERED: FAMOTIDINE 20 MG/2 ML ONE (07:44)
[2020-03-13] MEDS ORDERED: MORPHINE SULFATE 4 MG/ML, 1ML ONE ×3 (07:44→10:10)
[2020-03-13] MEDS ORDERED: ONDANSETRON 2MG/ML, 2ML ONE ×2 (07:44→12:16)
[2020-03-13] MEDS ORDERED: PANTOPRAZOLE 40 MG IV ONE ×2 (07:46→07:59)
[2020-03-13] MEDS: MORPHINE SULFATE 4 MG/ML, 1ML IVPush PRN ×2 (07:53→08:41)
[2020-03-13] MEDS ORDERED: PANTOPRAZOLE 40 MG IV IVPush ONE ×2 (08:00)
[2020-03-13] MEDS ORDERED: SODIUM CHLORIDE 0.9% 1,000ML IVBOLUS ONE (08:00)
[2020-03-13] MEDS ORDERED: FAMOTIDINE 20 MG/2 ML IVPush ONE (08:00)
[2020-03-13] MEDS ORDERED: ONDANSETRON 2MG/ML, 2ML IVPush ONE (08:00)
--- NOTE | 2020-03-13 08:00 | NUR ---
PT IS A 44M BIB EMS FROM THE [address] [place] [address] COMPLAINING OF NAUSEA AND VOMITING COFFEE GROUND EMESIS AND ABDOMINAL PAIN SINCE LAST NIGHT. THIS HAS HAPPENED TO HIM BEFORE. HE DRINKS 4 TALL CANS OF BEER A DAY BUT HAS NOT HAD ANY DRINKS IN THE LAST COUPLE OF DAYS. WARM BLANKETS PROVIDED, SUPERVISOR RECLAMATION, CONTINUOUS SP02, AND CYCLING VITALS IN PLACE.
[2020-03-13] MEDS: PANTOPRAZOLE 80 MG in SODIUM CHLORIDE 0.9% 100 ML IV SCH ×4 (08:09→20:05)
[2020-03-13 08:15] LABS: BASOPHILS % (AUTO) 0 % (0-1); EOSINOPHILS % (AUTO) 0 % (1-7); LYMPHOCYTES % (AUTO) 4 % (22-44); MEAN CORPUSCULAR HEMOGLOBIN 28.9 pg (27.5-34.5); MEAN CORPUSCULAR HGB CONC 33.1 g/dL (33.2-36.2); MEAN PLATELET VOLUME 7.4 fL (7.4-10.4); MONOCYTES % (AUTO) 6 % (2-9); NEUTROPHILS % (AUTO) 90 % (42-75); PLATELET COUNT 251 x10^3/uL (130-400); RED BLOOD COUNT 3.87 x10^6/uL (4.38-5.82); RED CELL DISTRIBUTION WIDTH 19.2 % (9.4-14.8)
[2020-03-13 08:23] LABS: ALANINE AMINOTRANSFERASE 48 U/L (12-78); ALBUMIN 3.5 g/dL (3.4-5.0); ANION GAP 13 mmol/L (5-15); CALCIUM 8.2 mg/dL (8.5-10.1); CHLORIDE 104 mmol/L (98-107); CREATININE 0.56 mg/dL (0.7-1.3)
[2020-03-13 08:24] LABS: INTERNATIONAL NORMALIZED RATIO 0.97 (0.93-1.1); PROTHROMBIN TIME 10.4 Seconds (9.6-11.5)
[2020-03-13 08:25] LABS: ALKALINE PHOSPHATASE 117 U/L (45-117); BILIRUBIN,TOTAL 0.4 mg/dL (0.2-1.0); TOTAL PROTEIN 7.4 g/dL (6.4-8.2)
[2020-03-13 09:01] LABS: MD SCAN
--- NOTE | 2020-03-13 09:28 | NUR ---
PT RESTING COMFORTABLY AND APPEARS TO BE SLEEPING. RESPIRATIONS 20, CALL LIGHT WITHIN REACH. NO ADDITIONAL NEEDS AT THIS TIME.
[2020-03-13] MEDS ORDERED: morphine SULFATE 10 MG/ML, 1ML IVPush ONE (10:00)
[2020-03-13] MEDS ORDERED: MORPHINE SULFATE 4 MG/ML, 1ML IVPush ONE (10:00)
--- NOTE | 2020-03-13 10:16 | NUR ---
PT STILL COMPLAINING OF ABD PAIN. MEDICATED PER EMAR. CALL LIGHT IN PLACE, AWAITING ROOM FOR ADMISSION. NO ADDITIONAL NEEDS AT THIS TIME
[2020-03-13] MEDS ORDERED: LABETALOL 5MG/ML, 20ML IVPush PRN (10:30)
[2020-03-13] MEDS ORDERED: OMNIPAQUE 350 MG/ML, 100ML BOTTLE ONE (10:42)
--- NOTE | 2020-03-13 11:24 | NUR ---
PT RESTING IN [place]UR[place]ALG[place]. ADMIT PROVIDER AND GI DOC HAVE BEEN TO BEDSIDE FOR EVAL AND DISCUSS PLAN OF CARE. CALL LIGHT WITHIN REACH. PROTONIX DRIP STILL INFUSING.
[2020-03-13] MEDS ORDERED: CEFTRIAXONE PMX 1GM/50ML 50 ML ONE (12:09)
[2020-03-13] MEDS: CEFTRIAXONE PMX 1GM/50ML 50 ML IV SCH (12:13)
[2020-03-13 12:48] VITALS: BP 132/87
[2020-03-13] MEDS: ACETAMINOPHEN 325 MG TABLET PO PRN ×2 (13:06→16:16)
[2020-03-13] MEDS: LACTATED RINGERS 1,000 ML IV SCH ×2 (13:06→21:42)
[2020-03-13] MEDS: morphine SULFATE 10 MG/ML, 1ML IVPush PRN ×3 (13:24→21:52)
[2020-03-13 14:55] VITALS: BP 127/92
[2020-03-13] MEDS: SUCRALFATE 1 GM/10 ML UDC PO SCH ×2 (16:15→21:42)
[2020-03-13] MEDS: ONDANSETRON 2MG/ML, 2ML IVPush PRN ×2 (16:16→22:33)
[2020-03-13 18:46] VITALS: BP 131/83
[2020-03-14 01:43] VITALS: BP 122/78
[2020-03-14] MEDS: ONDANSETRON ODT 4 MG PO PRN ×2 (01:54→14:02)
[2020-03-14] MEDS: morphine SULFATE 10 MG/ML, 1ML IVPush PRN ×2 (01:55→05:38)
[2020-03-14] MEDS: PANTOPRAZOLE 80 MG in SODIUM CHLORIDE 0.9% 100 ML IV SCH (04:27)
[2020-03-14] MEDS: SUCRALFATE 1 GM/10 ML UDC PO SCH ×4 (05:29→20:18)
[2020-03-14] MEDS: LACTATED RINGERS 1,000 ML IV SCH ×3 (05:30→22:35)
[2020-03-14 06:58] LABS: BASOPHILS % (AUTO) 0 % (0-1); EOSINOPHILS % (AUTO) 2 % (1-7); LYMPHOCYTES % (AUTO) 18 % (22-44); MEAN CORPUSCULAR HEMOGLOBIN 29.1 pg (27.5-34.5); MEAN CORPUSCULAR HGB CONC 33.3 g/dL (33.2-36.2); MEAN PLATELET VOLUME 7.6 fL (7.4-10.4); MONOCYTES % (AUTO) 14 % (2-9); NEUTROPHILS % (AUTO) 65 % (42-75); PLATELET COUNT 190 x10^3/uL (130-400); RED BLOOD COUNT 3.45 x10^6/uL (4.38-5.82); RED CELL DISTRIBUTION WIDTH 19.3 % (9.4-14.8)
[2020-03-14 07:00] LABS: MD NO
[2020-03-14 07:01] VITALS: BP 121/74
[2020-03-14 07:14] LABS: ANION GAP 8 mmol/L (5-15); CALCIUM 8.7 mg/dL (8.5-10.1); CHLORIDE 104 mmol/L (98-107); CREATININE 0.52 mg/dL (0.7-1.3)
[2020-03-14] MEDS: OXYcodone/APAP 5/325MG TABLET PO PRN ×4 (09:49→22:35)
[2020-03-14] MEDS: ONDANSETRON 2MG/ML, 2ML IVPush PRN ×2 (09:49→18:05)
[2020-03-14] MEDS ORDERED: FOLIC ACID 5 MG/ML IM ONE (10:30)
[2020-03-14] MEDS ORDERED: LORazepam 2 MG/ML, 1ML IV PRN ×5 (10:30)
[2020-03-14] MEDS ORDERED: LORazepam 1MG TABLET PO PRN ×3 (10:30)
[2020-03-14] MEDS: PANTOPRAZOLE 40 MG IV IVPush SCH (10:55)
[2020-03-14] MEDS: CEFTRIAXONE PMX 1GM/50ML 50 ML IV SCH (10:56)
[2020-03-14 13:16] VITALS: BP 122/76
[2020-03-14] MEDS: LORazepam 0.5MG TABLET PO PRN ×2 (13:55→22:35)
[2020-03-14] MEDS: ACETAMINOPHEN 325 MG TABLET PO PRN ×2 (17:41→20:22)
[2020-03-14] MEDS: NICOTINE 14MG/24 HR PATCH.TD24 TD SCH (17:41)
[2020-03-14 19:00] VITALS: BP 110/73
[2020-03-15 01:11] VITALS: BP 106/74
[2020-03-15] MEDS: ONDANSETRON 2MG/ML, 2ML IVPush PRN (03:46)
[2020-03-15] MEDS: OXYcodone/APAP 5/325MG TABLET PO PRN ×5 (03:46→23:18)
[2020-03-15] MEDS: LACTATED RINGERS 1,000 ML IV SCH (05:30)
[2020-03-15] MEDS: SUCRALFATE 1 GM/10 ML UDC PO SCH ×4 (05:30→20:50)
[2020-03-15 07:22] VITALS: BP 114/79
[2020-03-15] MEDS: PANTOPRAZOLE 40 MG IV IVPush SCH (09:39)
[2020-03-15] MEDS: LORazepam 1MG TABLET PO PRN ×3 (09:40→23:27)
[2020-03-15 12:27] VITALS: BP 114/70
[2020-03-15] MEDS: ONDANSETRON ODT 4 MG PO PRN ×2 (14:26→23:18)
[2020-03-15] MEDS: NICOTINE 14MG/24 HR PATCH.TD24 TD SCH (16:15)
[2020-03-15] MEDS: LORazepam 0.5MG TABLET PO PRN (18:25)
[2020-03-15 18:48] VITALS: BP 99/68
[2020-03-16 02:34] VITALS: BP 102/69
[2020-03-16] MEDS: SUCRALFATE 1 GM/10 ML UDC PO SCH ×2 (05:20→11:36)
[2020-03-16] MEDS: LORazepam 1MG TABLET PO PRN (05:28)
[2020-03-16] MEDS: ONDANSETRON ODT 4 MG PO PRN ×2 (05:28→09:19)
[2020-03-16] MEDS: OXYcodone/APAP 5/325MG TABLET PO PRN ×2 (05:29→06:29)
[2020-03-16] MEDS ORDERED: PANTOPRAZOLE 40MG TABLET PO SCH (06:00)
[2020-03-16 06:57] VITALS: BP 100/63
[2020-03-16] MEDS ORDERED: THIAMINE 100MG TABLET PO SCH (09:00)
[2020-03-16] MEDS ORDERED: THIAMINE 100 MG in DEXTROSE 5% 50 ML IVPB SCH (09:00)
[2020-03-16] MEDS: LORazepam 0.5MG TABLET PO PRN (09:19)
[2020-03-16] MEDS ORDERED: PANT40TA6 PO (10:33)
[2020-03-16] MEDS ORDERED: OXYC1TAB14 PO (10:33)
[2020-03-16] MEDS ORDERED: SUCR1ORA5 PO (10:33)
[2020-03-16] MEDS ORDERED: OXYcodone/APAP 5/325MG TABLET PO PRN (12:00)
[2020-03-16 12:11] VITALS: BP 101/69
== END 2020-03-16 12:55 | disposition home or self-care (01) | DRG 369 ==
LOC: ED 08:56 → EDIP 09:14 → INTOOBSV 09:14 → SUATTDRO 09:17 → 4WST 12:37 → OBSVTOIN 14:19 → DCLOUNGE 03-16 12:40
PROVIDERS: ADMIT Family Medicine; ATTEND Family Medicine
DX: K22.6 Gastro-esophageal laceration-hemorrhage syndrome (principal); F10.239 Alcohol dependence with withdrawal, unspecified; K22.10 Ulcer of esophagus without bleeding; D63.8 Anemia in other chronic diseases classified elsewhere; F17.210 Nicotine dependence, cigarettes, uncomplicated; F19.10 Other psychoactive substance abuse, uncomplicated; Z59.0 Homelessness; Z91.14 Patient's other noncompliance with medication regimen
CPT/HCPCS: 36415; 74177; 80048; 80053; 83690; 83735; 85014; 85018; 85025; 85610; 85730; 86850; 86900; 93005; 96361; 96374; 96375; 96376; 99285; G0378; J0696; J2405; Q0162; Q9967; C9113; J2060; J2270; J7030; J7120

== ENCOUNTER 2020-07-28 23:01 | Inpatient (IN) | payer MEDICAID ==
[~2020-07-28] VITALS: Ht 170.2 cm; Wt 56.2 kg
[~2020-07-28 23:01] MED LIST changes: +FOLI1TAB32 PO; +MULT-482 PO; +OXYC1TAB14 PO; +TAMS-11 PO; +THIA100T67 PO
--- NOTE | 2020-07-28 23:47 | NUR ---
pt presents to ER for abdominal pain and vomitting blood, pt states the pain and vomitting started this morning, pt does have a history of GI bleeds, pt states he drinks, "a couple pints a day", pt has an emesis bag and it does appear to have a red color to the vomit in the bag, pt hooked up to bus driver/monitor, O2 sensor, and blood pressure cuff
[2020-07-29] MEDS ORDERED: PANTOPRAZOLE 80 MG in SODIUM CHLORIDE 0.9% 50 ML IVPB ONE
[2020-07-29] MEDS ORDERED: LORazepam 2 MG/ML, 1ML IVPush ONE
[2020-07-29] MEDS ORDERED: METOCLOPRAMIDE 5 MG/ML, 2ML IVPush ONE
[2020-07-29] MEDS ORDERED: PANTOPRAZOLE 40 MG IV IV ONE
[2020-07-29] MEDS ORDERED: PANTOPRAZOLE 40 MG IV ONE (00:07)
[2020-07-29] MEDS ORDERED: METOCLOPRAMIDE 5 MG/ML, 2ML ONE (00:07)
[2020-07-29] MEDS ORDERED: LORazepam 2 MG/ML, 1ML ONE (00:08)
[2020-07-29 00:10] LABS: BASOPHILS % (AUTO) 0 % (0-1); EOSINOPHILS % (AUTO) 0 % (1-7); LYMPHOCYTES % (AUTO) 5 % (22-44); MEAN CORPUSCULAR HEMOGLOBIN 28.8 pg (27.5-34.5); MEAN CORPUSCULAR HGB CONC 33.2 g/dL (33.2-36.2); MEAN PLATELET VOLUME 7.4 fL (7.4-10.4); MONOCYTES % (AUTO) 5 % (2-9); NEUTROPHILS % (AUTO) 90 % (42-75); PLATELET COUNT 105 x10^3/uL (130-400); RED BLOOD COUNT 3.89 x10^6/uL (4.38-5.82); RED CELL DISTRIBUTION WIDTH 23.4 % (9.4-14.8)
[2020-07-29 00:24] LABS: ALANINE AMINOTRANSFERASE 45 U/L (12-78); ALBUMIN 3.8 g/dL (3.4-5.0); ANION GAP 15 mmol/L (5-15); CALCIUM 8.3 mg/dL (8.5-10.1); CHLORIDE 102 mmol/L (98-107); CREATININE 0.61 mg/dL (0.7-1.3)
[2020-07-29 00:25] LABS: ALKALINE PHOSPHATASE 107 U/L (45-117); BILIRUBIN,TOTAL 0.4 mg/dL (0.2-1.0); TOTAL PROTEIN 7.9 g/dL (6.4-8.2)
[2020-07-29] MEDS ORDERED: PANTOPRAZOLE 80 MG in SODIUM CHLORIDE 0.9% 100 ML IV SCH (00:30)
[2020-07-29] MEDS ORDERED: MAALOX/HYOSCYAMINE/LIDOCAINE 45 ML BTL ONE (01:28)
[2020-07-29] MEDS ORDERED: MAALOX/HYOSCYAMINE/LIDOCAINE 45 ML BTL PO ONE (01:30)
--- NOTE | 2020-07-29 02:12 | NUR ---
pt currently sleeping in bed, all needs in reach, call light in reach, NAD, vitals stable
--- NOTE | 2020-07-29 02:32 | NUR ---
Break RN: report given to DONNA Bautista. Patient to be transferred to room 482.
[2020-07-29] MEDS: SUCRALFATE 1 GM/10 ML UDC PO SCH ×5 (03:00→20:28)
[2020-07-29 03:21] VITALS: BP 119/76
[2020-07-29] MEDS ORDERED: hydrALAzine 20 MG/ML, 1ML IVPush PRN (03:30)
[2020-07-29] MEDS ORDERED: THIAMINE 200 MG, MVI ADULT 10 ML, FOLIC ACID 1 MG in D5%-0.9% NACL 1,000 ML IV SCH (03:30)
[2020-07-29] MEDS ORDERED: OXYcodone IR 5MG TABLET PO PRN (03:30)
[2020-07-29] MEDS ORDERED: ONDANSETRON 2MG/ML, 2ML IVPush PRN (03:30)
[2020-07-29] MEDS ORDERED: LORazepam 2 MG/ML, 1ML IV PRN ×5 (03:30)
[2020-07-29] MEDS ORDERED: PROMETHAZINE 25 MG/ML, 1ML IM PRN (03:30)
[2020-07-29] MEDS ORDERED: DOCUSATE 100 MG CAPSULE PO PRN (03:30)
[2020-07-29] MEDS ORDERED: LORazepam 1MG TABLET PO PRN ×3 (03:30)
[2020-07-29] MEDS ORDERED: morphine SULFATE 10 MG/ML, 1ML IVPush PRN (03:30)
[2020-07-29] MEDS: PANTOPRAZOLE 80 MG in SODIUM CHLORIDE 0.9% 100 ML IV SCH ×3 (04:00→20:29)
[2020-07-29] MEDS: CHLORDIAZEPOXIDE 25 MG CAPSULE PO SCH ×4 (04:04→21:37)
[2020-07-29 07:37] VITALS: BP 100/69
[2020-07-29] MEDS: TAMSULOSIN 0.4 MG CAP.ER.24H PO SCH (10:00)
[2020-07-29] MEDS: THIAMINE 100MG TABLET PO SCH (10:00)
[2020-07-29] MEDS: FOLIC ACID 1 MG TABLET PO SCH (10:01)
[2020-07-29] MEDS: MULTIVITAMIN 1 TABLET PO SCH (10:01)
[2020-07-29 12:29] VITALS: BP 94/62
[2020-07-29] MEDS: NICOTINE 21 MG/24 HR PATCH.TD24 TD SCH (17:04)
[2020-07-29] MEDS: LACTOBACILLUS CHEW TABLET PO SCH ×2 (17:04→20:28)
[2020-07-29 18:30] VITALS: BP 106/70
[2020-07-29] MEDS: ACETAMINOPHEN 325 MG TABLET PO PRN (20:28)
[2020-07-30] MEDS ORDERED: PANTOPRAZOLE 80 MG in SODIUM CHLORIDE 0.9% 100 ML IV SCH (00:30)
[2020-07-30 00:45] VITALS: BP 100/68
[2020-07-30] MEDS: SUCRALFATE 1 GM/10 ML UDC PO SCH ×4 (05:44→20:07)
[2020-07-30 05:51] LABS: BASOPHILS % (AUTO) 1 % (0-1); EOSINOPHILS % (AUTO) 4 % (1-7); LYMPHOCYTES % (AUTO) 20 % (22-44); MEAN CORPUSCULAR HEMOGLOBIN 28.7 pg (27.5-34.5); MEAN CORPUSCULAR HGB CONC 32.9 g/dL (33.2-36.2); MEAN PLATELET VOLUME 8.4 fL (7.4-10.4); MONOCYTES % (AUTO) 8 % (2-9); NEUTROPHILS % (AUTO) 68 % (42-75); PLATELET COUNT 83 x10^3/uL (130-400); RED BLOOD COUNT 3.57 x10^6/uL (4.38-5.82); RED CELL DISTRIBUTION WIDTH 22.7 % (9.4-14.8)
[2020-07-30 06:01] LABS: CHLORIDE 107 mmol/L (98-107)
[2020-07-30 06:10] LABS: ALANINE AMINOTRANSFERASE 28 U/L (12-78); ALBUMIN 3.2 g/dL (3.4-5.0); ALKALINE PHOSPHATASE 89 U/L (45-117); ANION GAP 9 mmol/L (5-15); BILIRUBIN,TOTAL 0.5 mg/dL (0.2-1.0); CALCIUM 8.2 mg/dL (8.5-10.1); TOTAL PROTEIN 6.7 g/dL (6.4-8.2)
[2020-07-30 07:11] VITALS: BP 113/76
[2020-07-30] MEDS: PANTOPRAZOLE 80 MG in SODIUM CHLORIDE 0.9% 100 ML IV SCH ×2 (07:48→20:07)
[2020-07-30] MEDS: LACTOBACILLUS CHEW TABLET PO SCH ×3 (08:17→20:07)
[2020-07-30] MEDS: FOLIC ACID 1 MG TABLET PO SCH (08:17)
[2020-07-30] MEDS: MULTIVITAMIN 1 TABLET PO SCH (08:17)
[2020-07-30] MEDS: THIAMINE 100MG TABLET PO SCH (08:17)
[2020-07-30] MEDS: TAMSULOSIN 0.4 MG CAP.ER.24H PO SCH (08:17)
[2020-07-30] MEDS: CHLORDIAZEPOXIDE 25 MG CAPSULE PO SCH ×2 (08:18→16:50)
[2020-07-30] MEDS: NICOTINE 21 MG/24 HR PATCH.TD24 TD SCH (08:18)
[2020-07-30] MEDS: ACETAMINOPHEN 325 MG TABLET PO PRN ×2 (08:27→17:02)
[2020-07-30] MEDS: ONDANSETRON ODT 4 MG PO PRN ×2 (11:26→17:02)
[2020-07-30] MEDS: LORazepam 0.5MG TABLET PO PRN ×3 (11:28→20:44)
[2020-07-30 13:09] VITALS: BP 109/72
[2020-07-30] MEDS: LORazepam 1MG TABLET PO PRN (17:03)
[2020-07-30 19:11] VITALS: BP 100/62
[2020-07-30] MEDS ORDERED: CHLORDIAZEPOXIDE 5 MG CAPSULE PO SCH (21:00)
[2020-07-31] MEDS: PANTOPRAZOLE 80 MG in SODIUM CHLORIDE 0.9% 100 ML IV SCH (05:16)
[2020-07-31] MEDS: PANTOPRAZOLE 40MG TABLET PO SCH (05:18)
[2020-07-31] MEDS: SUCRALFATE 1 GM/10 ML UDC PO SCH ×4 (05:18→20:50)
[2020-07-31 06:37] LABS: % IRON SATURATION 10 % (20-55); IRON LEVEL 29 mcg/dL (65-175); TOTAL IRON BINDING CAPACITY 284 mcg/dL (250-450)
[2020-07-31 06:56] VITALS: BP 103/69
[2020-07-31] MEDS: TAMSULOSIN 0.4 MG CAP.ER.24H PO SCH (08:57)
[2020-07-31] MEDS: NICOTINE 21 MG/24 HR PATCH.TD24 TD SCH (08:59)
[2020-07-31] MEDS: LACTOBACILLUS CHEW TABLET PO SCH ×3 (08:59→20:50)
[2020-07-31] MEDS: THIAMINE 100MG TABLET PO SCH (08:59)
[2020-07-31] MEDS: FOLIC ACID 1 MG TABLET PO SCH (08:59)
[2020-07-31] MEDS: MULTIVITAMIN 1 TABLET PO SCH (08:59)
[2020-07-31] MEDS: ONDANSETRON ODT 4 MG PO PRN ×2 (08:59→16:59)
[2020-07-31] MEDS ORDERED: CHLORDIAZEPOXIDE 25 MG CAPSULE PO SCH (09:00)
[2020-07-31] MEDS: LORazepam 1MG TABLET PO PRN ×3 (09:26→21:32)
[2020-07-31] MEDS: FERROUS SULFATE 325 MG TABLET PO SCH (09:26)
[2020-07-31] MEDS: ACETAMINOPHEN 325 MG TABLET PO PRN ×2 (09:26→16:59)
[2020-07-31] MEDS ORDERED: MAGNESIUM CITRATE 300ML ORAL SOL PO ONE (10:00)
[2020-07-31 12:38] VITALS: BP 95/62
[2020-07-31 20:23] VITALS: BP 93/62
[2020-07-31] MEDS: SENNA/DOCUSATE TABLET PO SCH (20:50)
[2020-08-01] MEDS: SUCRALFATE 1 GM/10 ML UDC PO SCH ×4 (05:44→20:49)
[2020-08-01] MEDS: PANTOPRAZOLE 40MG TABLET PO SCH (05:44)
[2020-08-01] MEDS: NICOTINE 21 MG/24 HR PATCH.TD24 TD SCH (09:36)
[2020-08-01] MEDS: FOLIC ACID 1 MG TABLET PO SCH (09:36)
[2020-08-01] MEDS: MULTIVITAMIN 1 TABLET PO SCH (09:36)
[2020-08-01] MEDS: BISACODYL 10 MG SUPP PR SCH (09:36)
[2020-08-01] MEDS: LACTOBACILLUS CHEW TABLET PO SCH ×3 (09:36→20:49)
[2020-08-01] MEDS: THIAMINE 100MG TABLET PO SCH (09:36)
[2020-08-01] MEDS: TAMSULOSIN 0.4 MG CAP.ER.24H PO SCH (09:36)
[2020-08-01] MEDS: ACETAMINOPHEN 325 MG TABLET PO PRN (09:42)
[2020-08-01] MEDS ORDERED: SENN-211 PO (09:57)
[2020-08-01] MEDS ORDERED: FERR-36 PO (09:57)
[2020-08-01] MEDS ORDERED: ACID1TAB7 PO (09:57)
[2020-08-01] MEDS ORDERED: NICO-587 TD (09:57)
[2020-08-01 13:12] VITALS: BP 96/62
[2020-08-01 13:42] VITALS: BP 88/52
[2020-08-01] MEDS: LORazepam 0.5MG TABLET PO PRN ×2 (16:27→20:49)
[2020-08-01 20:03] VITALS: BP 93/61
[2020-08-01] MEDS: SENNA/DOCUSATE TABLET PO SCH (20:49)
[2020-08-02] VITALS (7 sets, daily range): BP systolic 89–99; BP diastolic 58–70
[2020-08-02] MEDS: PANTOPRAZOLE 40MG TABLET PO SCH (05:32)
[2020-08-02] MEDS: SUCRALFATE 1 GM/10 ML UDC PO SCH ×4 (05:32→21:01)
[2020-08-02] MEDS: NICOTINE 21 MG/24 HR PATCH.TD24 TD SCH (08:15)
[2020-08-02] MEDS: FERROUS SULFATE 325 MG TABLET PO SCH (08:16)
[2020-08-02] MEDS: LACTOBACILLUS CHEW TABLET PO SCH ×3 (08:16→21:02)
[2020-08-02] MEDS: MULTIVITAMIN 1 TABLET PO SCH (08:16)
[2020-08-02] MEDS: BISACODYL 10 MG SUPP PR SCH (08:16)
[2020-08-02] MEDS: THIAMINE 100MG TABLET PO SCH (08:16)
[2020-08-02] MEDS: TAMSULOSIN 0.4 MG CAP.ER.24H PO SCH (08:16)
[2020-08-02] MEDS: FOLIC ACID 1 MG TABLET PO SCH (08:16)
[2020-08-02] MEDS: ACETAMINOPHEN 325 MG TABLET PO PRN ×2 (08:23→21:01)
[2020-08-02] MEDS ORDERED: BISACODYL 10 MG SUPP PR PRN (09:00)
[2020-08-02] MEDS ORDERED: SODIUM CHLORIDE 0.9% 500 ML IV ONE (10:30)
[2020-08-02] MEDS: SENNA/DOCUSATE TABLET PO SCH (21:02)
[2020-08-02] MEDS: SIMETHICONE 80 MG CHEW TAB PO PRN (21:15)
[2020-08-03 01:28] VITALS: BP 105/59
[2020-08-03] MEDS: SUCRALFATE 1 GM/10 ML UDC PO SCH ×2 (05:33→11:44)
[2020-08-03] MEDS: PANTOPRAZOLE 40MG TABLET PO SCH (05:33)
[2020-08-03] MEDS: ACETAMINOPHEN 325 MG TABLET PO PRN ×2 (05:33→08:37)
[2020-08-03 07:44] VITALS: BP 98/66
[2020-08-03] MEDS: THIAMINE 100MG TABLET PO SCH (08:27)
[2020-08-03] MEDS: FOLIC ACID 1 MG TABLET PO SCH (08:27)
[2020-08-03] MEDS: LACTOBACILLUS CHEW TABLET PO SCH (08:27)
[2020-08-03] MEDS: NICOTINE 21 MG/24 HR PATCH.TD24 TD SCH (08:27)
[2020-08-03] MEDS: TAMSULOSIN 0.4 MG CAP.ER.24H PO SCH (08:27)
[2020-08-03] MEDS: MULTIVITAMIN 1 TABLET PO SCH (08:27)
[2020-08-03] MEDS: SIMETHICONE 80 MG CHEW TAB PO PRN (08:37)
[2020-08-03 12:16] VITALS: BP 97/65
== END 2020-08-03 14:28 | disposition home or self-care (01) | DRG 432 ==
LOC: ED 23:57 → EDIP 07-29 02:02 → 4EST 07-29 02:44
PROVIDERS: ADMIT Internal Medicine; ATTEND Internal Medicine
DX: K70.10 Alcoholic hepatitis without ascites (principal); K22.11 Ulcer of esophagus with bleeding; K29.71 Gastritis, unspecified, with bleeding; K76.6 Portal hypertension; F10.239 Alcohol dependence with withdrawal, unspecified; K44.9 Diaphragmatic hernia without obstruction or gangrene; K59.00 Constipation, unspecified; F17.210 Nicotine dependence, cigarettes, uncomplicated; E86.0 Dehydration; E83.51 Hypocalcemia; D69.6 Thrombocytopenia, unspecified; D50.9 Iron deficiency anemia, unspecified; Z59.0 Homelessness; Z91.19 Patient's noncompliance with other medical treatment and regimen; Z83.3 Family history of diabetes mellitus; Z80.8 Family history of malignant neoplasm of other organs or systems; Z87.19 Personal history of other diseases of the digestive system
CPT/HCPCS: 36415; 96374; 96375; 99285; J7042; 80053; 80320; 82330; 83540; 83550; 83690; 83735; 84100; 85014; 85018; 85025; 86850; 86900; G0378; J3411; Q0162; C9113; G0480; J2060; J2765; J7040

== ENCOUNTER 2020-11-02 19:36 | Emergency (ER) | payer MEDICAID ==
[~2020-11-02] VITALS: Ht 175.3 cm; Wt 72.0 kg
[~2020-11-02 19:36] MED LIST changes: +ACID1TAB7 PO; +FERR-36 PO; +NICO-587 TD; +OXYC1TAB12 PO; -OXYC1TAB14 PO; +SENN-211 PO
[2020-11-02 19:40] VITALS: BP 128/93
--- NOTE | 2020-11-02 22:22 | NUR ---
WITH REASSESSMENT PATIENT NOW ALERT ORIENTED. PO CHALLENGE/ROAD TEST UNREMARKABLE
--- NOTE | 2020-11-02 22:28 | NUR ---
RECEIVED REPORT FROM DONNA OJEDA TO ASSUME CARE OF PT. PT. TO DC BACK TO [facility].
--- NOTE | 2020-11-02 22:31 | NUR ---
UNABLE TO LOCATE PT. IN DEPARTMENT TO PROVIED D/C INSTRUCTIONS.
== END 2020-11-02 22:33 | disposition home or self-care (01) ==
LOC: ED 19:45
DX: F10.220 Alcohol dependence with intoxication, uncomplicated (principal); F17.210 Nicotine dependence, cigarettes, uncomplicated; Y90.9 Presence of alcohol in blood, level not specified
CPT/HCPCS: 99283; 99406